=== PATIENT | female | born 1985 | race Caucasian/White ===

== ENCOUNTER 2020-05-12 14:14 | Emergency (ER) | payer OTHER ==
--- NOTE | 2020-05-12 14:31 | TELE ---
HPI Do you have fever,cough or shortness of breath?: Yes - General Reason For Visit: COVID TESTING Time Seen by Provider: 05/12/20 14:25 History Source: Patient Exam Limitations: Clinical Condition - History of Present Illness Timing/Duration: momentarily, other (2 days) Associated Symptoms: reports: denies symptoms. denies: cough, fever/chills, headaches, loss of appetite, nausea/vomiting, shortness of breath, syncope, weakness 05/12/20 14:25 Patient with no significant past medical history present to [facility] urgent care for COVID testing due to having diarrheal episode for 2 days. Patient reported has not been going to work and work requires her to have complete test before returning to work. Denies cough, shortness of breath, fever, chills, abdominal pain, chest pain. Denies any other symptoms. Denies sick contact or recent travel. Patient has not taken anything for symptoms Review of Systems - Review of Systems Able to Perform ROS?: Yes Limited [place]ut proficient: No Constitutional: No: Chills, Fever, Malaise HEENTM: No: Symptoms Reported, See HPI, Eye Pain, Blurred Vision, Tearing, Recent change in vision, Double Vision, Cataracts, Ear Pain, Ocular Prothesis, Ear Discharge, Nose Pain, Nose Congestion, Tinnitus, Nose Bleeding, Hearing Loss, Throat Pain, Throat Swelling, Mouth Pain, Dental Problems, Difficulty Swallowing, Mouth Swelling, Other Respiratory: No: Symptoms reported, See HPI, Cough, Orthopnea, Shortness of Breath, SOB with Exertion, SOB at Rest, Stridor, Wheezing, Productive cough, Hemoptysis, Other Cardiac (ROS): No: Symptoms Reported, See HPI, Chest Pain, Edema, Irregular Heart Rate, Lightheadedness, Palpitations, Syncope, Chest Tightness, Other ABD/GI: Yes: Symptoms Reported, Diarrhea. No: Abd. Pain w/ defecation, Nausea, Poor Fluid Intake, Vomiting, Abdominal cramping All Other Systems: Reviewed and Negative *Physical Exam - Physical Exam General Appearance: Yes: Nourished, Appropriately Dressed. No: Apparent Distress HEENT: positive: Normal ENT Inspection Respiratory/Chest: negative: Respiratory Distress, Accessory Muscle Use Musculoskeletal: positive: Normal Inspection Extremity: positive: Normal Capillary Refill, Normal Inspection, Normal Range of Motion Integumentary: positive: Normal Color Neurologic: positive: Fully Oriented, Alert, Normal Mood/Affect, Normal Response, Motor Strength 01/23 - Medical Decision Making 05/12/20 14:26 Patient with no significant past medical history present to [facility] urgent care for COVID testing due to having diarrheal episode for 2 days. Patient reported has not been going to work and work requires her to have complete test before returning to work. Denies cough, shortness of breath, fever, chills, abdominal pain, chest pain. Denies any other symptoms. Denies sick contact or recent travel. Patient has not taken anything for symptoms Patient is currently asymptomatic and afebrile. Discussed self quarantine instructions with patient. COVID tests ordered as per patient request and patient will go to [facility] [facility] drive-through testing center for testing today. Patient stable for discharge Discharge Diagnosis at time of Disposition: Encounter by telehealth for suspected COVID-19 - Referrals Follow-up Referral(s): Tay Skinner MD [Primary Care Provider] - - Patient Instructions Discharge Instructions: [facility] Instructions, [facility] COVID-19 Isolation Protocol - Discharge Disposition: HOME Condition at time of Disposition: Stable
== END 2020-05-12 14:32 | disposition home or self-care (01) ==
LOC: JVIRT 14:14
DX: Z11.59 Encounter for screening for other viral diseases (principal)
CPT/HCPCS: Q3014-GT; U0003

== ENCOUNTER 2022-08-27 23:14 | Emergency (ER) | payer OTHER ==
[2022-08-27 23:36] VITALS: BP 101/70; PULSE 100; RESP 17; TEMP 98.5; BMI 19.5
[2022-08-28 01:11] LABS: EOS % 1.9 % (0-4.5); HEMATOCRIT 39.2 % (32.4-45.2); HEMOGLOBIN 13.2 GM/dL (10.7-15.3); LYMPH % 21.7 % (8-40); MCHC 33.7 g/dl (32.0-36.0); MEAN CELL VOLUME 97.9 fl (80-96); MEAN PLT VOLUME 7.3 fl (7.5-11.1); MONO % 5.4 % (3.8-10.2); PLATELET COUNT 271 10^3/uL (134-434); RDW 13.1 % (11.6-15.6); WHITE BLOOD COUNT 6.7 K/mm3 (4.0-10.0)
[2022-08-28 01:32] LABS: CHLORIDE 108 mmol/L (98-107); SODIUM 141 mmol/L (136-145)
[2022-08-28 01:34] LABS: CALCIUM 8.5 mg/dL (8.5-10.1)
[2022-08-28] MEDS ORDERED: HALOPERIDOL LACTATE 5 MG/ML IM ONE ×2 (01:34→01:40)
[2022-08-28 01:35] LABS: ALBUMIN 3.4 g/dl (3.4-5.0); ANION GAP 10 MMOL/L (8-16); BLOOD UREA NITROGEN 7.5 mg/dL (7-18); CO2 23 mmol/L (21-32); GLUCOSE,RANDOM 139 mg/dL (74-106)
[2022-08-28 01:38] LABS: CREATININE 0.6 mg/dL (0.55-1.3)
[2022-08-28 01:39] LABS: SGOT/AST 15 U/L (15-37); SGPT/ALT 17 U/L (13-61)
[2022-08-28 01:40] LABS: BILIRUBIN,TOTAL < 0.1 mg/dL (0.2-1); TOT PROT 6.7 g/dl (6.4-8.2)
[2022-08-28] MEDS ORDERED: LACTATED RINGERS SOLUTION 1000 ML INFUS.BAG IV ONE (01:41)
[2022-08-28 01:42] LABS: ALK PHOS 59 U/L (45-117)
== END 2022-08-28 06:40 | disposition home or self-care (01) ==
LOC: JER 23:14
PROC: 3E023GC Introduction of Other Therapeutic Substance into Muscle, Percutaneous Approach (ICD-10-PCS; principal; 2022-08-27)
DX: S80.02XA Contusion of left knee, initial encounter (principal); F10.929 Alcohol use, unspecified with intoxication, unspecified; V49.9XXA Car occupant (driver) (passenger) injured in unspecified traffic accident, initial encounter
CPT/HCPCS: 36415; 70450-TC; 71260-TC; 72125-TC; 73552-TC-LT-FY; 73564-TC-LT-FY; 74177-TC; 80053; 80307; 84703; 85025; 99285-25; Q9967

== ENCOUNTER 2025-04-20 19:05 | Emergency (ER) | payer OTHER ==
[2025-04-20 19:20] VITALS: BP 108/71; PULSE 72; RESP 20; TEMP 97.9; BMI 18.6
[2025-04-20] MEDS ORDERED: ACETAMINOPHEN 500 MG TABLET (FP) ONE (20:44)
[2025-04-20] MEDS: ACETAMINOPHEN 500 MG TABLET (FP) PO ONE (20:47)
[2025-04-20 20:52] LABS: EPI CELLS >36 /uL (0-25.1); HYALINE CASTS 2 /uL (0-3.1); URINE APPEARANCE CLOUDY; URINE BACTERIA 60 /uL (0-1359); URINE BILIRUBIN NEGATIVE (NEGATIVE); URINE COLOR YELLOW; URINE GLUCOSE (UA) NEGATIVE (NEGATIVE); URINE KETONE TRACE (NEGATIVE); URINE LEUK ESTERASE 2+ (NEGATIVE); URINE NITRITE NEGATIVE (NEGATIVE); URINE PROTEIN NEGATIVE (NEGATIVE); URINE RBC 38 /uL (0-23.9); URINE UROBILINOGEN 1.0 mg/dL (0.2-1.0); URINE WBC 296 /uL (0-25.8)
[2025-04-20] MEDS ORDERED: PHENAZOPYRIDINE HCL 100 MG TABLET (FP) ONE ×2 (21:30→21:31)
[2025-04-20] MEDS ORDERED: CEPHALEXIN MONOHYDRATE 500 MG CAPSULE (UD) ONE (21:30)
[2025-04-20] MEDS: CEPHALEXIN MONOHYDRATE 500 MG CAPSULE (UD) PO ONE (21:32)
[2025-04-20] MEDS: PHENAZOPYRIDINE HCL 100 MG TABLET (FP) PO ONE (21:32)
== END 2025-04-20 21:37 | disposition home or self-care (01) ==
LOC: JERFT 19:05
DX: R30.0 Dysuria (principal); R35.0 Frequency of micturition; R39.15 Urgency of urination; R39.11 Hesitancy of micturition; N89.8 Other specified noninflammatory disorders of vagina; R10.30 Lower abdominal pain, unspecified
CPT/HCPCS: 81003; 84703; 87086; 99283-25